=== PATIENT | male | born 1985 | race Hispanic/Latino ===

== ENCOUNTER 2017-04-20 09:16 | Emergency (ER) | payer OTHER ==
[2017-04-20 09:33] VITALS: O2SAT 96
--- NOTE | 2017-04-20 10:26 | C.PDOC ---
History Of Present Illness 31 yr old male presents to the ER with complaints of discharge from the buttock area for the past 2 days. Patient reports had a pilonidal cystectomy 1 year ago. Patient reports of purulent discharge from the area. Denies fever, rectal pain or back pain. Time Seen by Provider: 04/20/17 10:02 Chief Complaint (Nursing): Abnormal Skin Integrity History Per: Patient, Car Salter ([id number]) History/Exam Limitations: no limitations, language barrier Onset/Duration Of Symptoms: Days (2) Past Medical History Reviewed: Historical Data, Nursing Documentation, Vital Signs Vital Signs: Last Vital Signs Temp 98.2 F 04/20/17 09:28 Pulse 78 04/20/17 09:28 Resp 16 04/20/17 09:28 BP 116/72 04/20/17 09:28 Pulse Ox 96 04/20/17 10:52 Family History: States: No Known Family Hx - Social History Hx Alcohol Use: No Hx Substance Use: No - Immunization History Hx Tetanus Toxoid Vaccination: No Hx Influenza Vaccination: Yes (2014) Hx Pneumococcal Vaccination: No Review Of Systems Except As Marked, All Systems Reviewed And Found Negative. Constitutional: Negative for: Fever Gastrointestinal: Positive for: Other ((+) Drainage from buttock area). Negative for: Rectal Pain Musculoskeletal: Negative for: Back Pain Physical Exam - Physical Exam Appears: Non-toxic, No Acute Distress Skin: Warm, Dry, Other ((+) Multiple scaring consistent with pilonidal cyst. Purulent discharge. Local tenderness. ) Head: Atraumatic, Normacephalic Oral Mucosa: Moist Chest: Symmetrical, No Tenderness Cardiovascular: Rhythm Regular, No Murmur Respiratory: Normal Breath Sounds, No Rales, No Rhonchi, No Stridor, No Wheezing Rectal: Normal Exam Extremity: Normal ROM, No Swelling Neurological/Psych: Oriented x3, Normal Speech, Normal Motor ED Course And Treatment O2 Sat by Pulse Oximetry: 96 (RA ) Pulse Ox Interpretation: Normal Medical Decision Making Medical Decision Making: NOTE: Advised to have sitz bath. Antibiotic Rx given and advised to follow up with PMD for further evaluation. If symptoms were to worsen, return to ED. Disposition Counseled Patient/Family Regarding: Diagnosis, Need For Followup, Rx Given - Disposition [facility]errals: [facility] [Outside] [facility] [Outside] Disposition: HOME/ ROUTINE Disposition Time: 10:24 Condition: GOOD Prescriptions: Amoxicillin/Clavulanate [Augmentin 875 MG-125 MG] 1 tab PO BID #[id number] tab Instructions: Abscess (ED) Forms: General Discharge Instructions - Clinical Impression Clinical Impression: Pilonidal abscess - Scribe Statement The provider has reviewed the documentation as recorded by the Harish Staples Provider Attestation: All medical record entries made by the Harish were at my direction and personally dictated by me. I have reviewed the chart and agree that the record accurately reflects my personal performance of the history, physical exam, medical decision making, and the department course for this patient. I have also personally directed, reviewed, and agree with the discharge instructions and disposition.
[2017-04-20 10:55] VITALS: BP 104/72; PULSE 72; RESP 20; TEMP 97.5
== END 2017-04-20 10:45 | disposition home or self-care (01) ==
LOC: C.ER 09:16 → EDBD 09:16 → C.ER 10:45
DX: L05.01 Pilonidal cyst with abscess (principal)